=== PATIENT | female | born 1935 | race Caucasian/White ===

== ENCOUNTER → 2016-10-03 | Outpatient (REF) | payer MEDICARE | LOC: M LAB REF 16:24 | PROVIDERS: ATTEND Physician Assistant | DX: N39.0 Urinary tract infection, site not specified (principal) ==

== ENCOUNTER → 2016-10-28 | Outpatient (REF) | payer MEDICARE | LOC: M LAB REF 15:00 | PROVIDERS: ATTEND Physician Assistant | DX: N39.0 Urinary tract infection, site not specified (principal) ==

== ENCOUNTER → 2016-12-01 | Outpatient (REF) | payer MEDICARE | LOC: M LABNEURO 10:40 | PROVIDERS: ATTEND Psychiatry & Neurology Neurology | DX: M54.9 Dorsalgia, unspecified (principal) ==

== ENCOUNTER → 2017-02-02 | Outpatient (REF) | payer MEDICARE ==
[2017-02-02 15:29] LABS: IMMUNOGLOBULIN A 61.3 MG/DL (70-400); IMMUNOGLOBULIN G 2080 MG/DL (681-1648); IMMUNOGLOBULIN M 69.8 MG/DL (40-230); TOTAL PROTEIN 8.3 GM/DL (6.4-8.2)
[2017-02-03 14:17] LABS: FREE KAPPA LIGHT CHAINS SERUM 27.3 mg/L (3.3-19.4); FREE LAMBDA LIGHT CHAINS SERUM 13.1 mg/L (5.7-26.3); KAPPA/LAMBDA RATIO SERUM 2.08 (0.26-1.65)
[2017-02-06 11:35] LABS: ALBUMIN 4.29 GM/DL (3.29-5.55); ALBUMIN % 51.7 % (55.8-66.1); GAMMA GLOBULIN % 27.3 % (11.1-18.8)
== END ==
LOC: M LAB REF 13:08
PROVIDERS: ATTEND Internal Medicine Medical Oncology
DX: D47.2 Monoclonal gammopathy (principal)

== ENCOUNTER → 2017-06-01 | Outpatient (CLI) | payer MEDICARE ==
--- NOTE | 2017-06-01 11:25 | REPMRS ---
Patient History The patient states she had a clinical breast exam in May 2017. Patient is postmenopausal. No known family history of cancer. Benign stereotactic core biopsy of the right breast. Digital Mammo Screening Bilat: June 01, 2017 - Exam #: [id number] Bilateral CC and MLO view(s) were taken. Technologist: Kajal Varela, Technologist Prior study comparison: May 30, 2016, bilateral digital mammo screening bilat performed at [facility]. May 26, 2015, bilateral digital mammo screening bilat performed at [facility]. FINDINGS: There are scattered fibroglandular densities. There has been no change in the appearance of the mammogram from the prior studies. There is a mild amount of residual fibroglandular tissue which is fairly symmetric. There is no interval development of dominant mass, architectural distortion, or clustered microcalcification suggestive of malignancy. ASSESSMENT: BI-RADS/ACR category 1 mammogram. Negative. Recommendation Routine screening mammogram in 1 year (for women over age 40). This mammogram was interpreted with the aid of an FDA-approved computer-aided dectection system. Electronically Signed By: Jay Toledo MD 06/01/17 0320
== END ==
LOC: M RAD 10:55
PROVIDERS: ATTEND Advanced Practice Midwife
DX: Z12.31 Encounter for screening mammogram for malignant neoplasm of breast (principal)

== ENCOUNTER → 2017-08-15 | Outpatient (REF) | payer MEDICARE ==
[2017-08-15 13:08] LABS: IMMUNOGLOBULIN A 55.6 MG/DL (70-400); IMMUNOGLOBULIN G 2030 MG/DL (681-1648); IMMUNOGLOBULIN M 56.4 MG/DL (40-230); TOTAL PROTEIN 7.5 GM/DL (6.4-8.2)
[2017-08-17 00:06] LABS: FREE KAPPA LIGHT CHAINS SERUM 23.3 mg/L (3.3-19.4); FREE LAMBDA LIGHT CHAINS SERUM 11.9 mg/L (5.7-26.3); KAPPA/LAMBDA RATIO SERUM 1.96 (0.26-1.65)
[2017-08-17 11:28] LABS: ALBUMIN 3.97 GM/DL (3.29-5.55); ALBUMIN % 52.9 % (55.8-66.1); ALPHA-1-GLOBULIN % 3.3 % (2.9-4.9); ALPHA-1-GLOBULINS 0.25 GM/DL (0.17-0.41); ALPHA-2-GLOBULINS 0.63 GM/DL (0.42-0.99); ALPHA-2-GLOBULINS % 8.4 % (7.1-11.8); BETA-1-GLOBULINS 0.38 GM/DL (0.28-0.60); BETA-1-GLOBULINS % 5.1 % (4.7-7.2); BETA-2-GLOBULINS 0.25 GM/DL (0.19-0.55); BETA-2-GLOBULINS % 3.3 % (3.2-6.5); GAMMA GLOBULINS 2.03 GM/DL (0.65-1.58)
== END ==
LOC: M LAB REF 11:53
DX: D47.2 Monoclonal gammopathy (principal)
CPT/HCPCS: 84165

== ENCOUNTER → 2017-09-06 | Outpatient (REF) | payer MEDICARE | LOC: M LAB REF 18:43 | DX: D47.2 Monoclonal gammopathy (principal) | CPT/HCPCS: 88300 ==

== ENCOUNTER → 2018-06-06 | Outpatient (CLI) | payer MEDICARE | LOC: M RAD 10:29 | DX: Z12.31 Encounter for screening mammogram for malignant neoplasm of breast (principal) | CPT/HCPCS: 77067 ==

== ENCOUNTER → 2018-07-09 | Outpatient (REF) | payer MEDICARE ==
[2018-07-09 20:16] LABS: BASO % 0.5 % (0.0-1.0); EOS # 0.1 10^3/uL (0.0-0.50); EOS % 1.4 % (0.0-3.0); HEMATOCRIT 41.2 % (36.0-47.0); HEMOGLOBIN 13.4 g/dl (12.0-15.5); IMMATURE GRANULOCYTE % 0.2 % (0-3.0); LYMPH # 3.4 10^3/uL (1.5-4.5); LYMPH % 52.3 % (24.0-44.0); MEAN CORPUSCULAR HEMOGLOBIN 31.1 pg (27.0-33.0); MEAN CORPUSCULAR HGB CONC 32.5 g/dl (32.0-36.5); MEAN CORPUSCULAR VOLUME 95.6 fl (80.0-96.0); MONO # 0.5 10^3/uL (0.0-0.8); MONO % 7.6 % (0.0-5.0); NEUTROPHILS # 2.4 10^3/uL (1.8-7.7); PLATELET COUNT, AUTOMATED 241 10^3/uL (150-450); RED BLOOD COUNT 4.31 10^6/uL (4.00-5.40); RED CELL DISTRIBUTION WIDTH 12.8 % (11.5-14.5); WHITE BLOOD COUNT 6.4 10^3/uL (4.0-10.0)
[2018-07-09 20:46] LABS: FERRITIN 73 NG/ML (8-252); IRON (FE) 67 UG/DL (50-170); PERCENT SATURATION 20.8 % (13.2-45.0); THYROID STIMULATING HORMONE 0.537 uIU/ML (0.358-3.740); TOTAL IRON BINDING CAPACITY 322 UG/DL (250-450)
[2018-07-09 20:49] LABS: FOLATE > 24.0 NG/ML; TOTAL 25(OH) VITAMIN D 52.2 NG/ML (30.0-100.0); VITAMIN B12 LEVEL 906 PG/ML
== END ==
LOC: M SFHCLERA 19:27
DX: R51 Headache (principal); D49.2 Neoplasm of unspecified behavior of bone, soft tissue, and skin; L65.0 Telogen effluvium
CPT/HCPCS: 82746

== ENCOUNTER → 2018-07-09 | Outpatient (REF) | payer MEDICARE | LOC: M SFHCLERA 11:41 | DX: L82.1 Other seborrheic keratosis (principal) | CPT/HCPCS: 88305 ==

== ENCOUNTER → 2019-05-20 | Outpatient (REF) | payer MEDICARE ==
[~2019-05-20] MED LIST: AMLO2.5T3 PO; CENTCHW3 PO; DOXE25CA PO; ESTR0.1C5 PO; FISH1CAP24 PO; LOVA20TA2 PO; TIMO0.5S39 OP; VITA1CHW13 PO
== END ==
LOC: M SFHCSACK 15:45
PROVIDERS: ATTEND Physician Assistant
DX: N39.0 Urinary tract infection, site not specified (principal)
CPT/HCPCS: 81002; 87088; 87186; G0463

== ENCOUNTER 2019-06-10 09:26 | Emergency (ER) | payer MEDICARE ==
[~2019-06-10] VITALS: Ht 167.6 cm; Wt 59.5 kg
--- NOTE | 2019-06-10 10:00 | REP ---
Clinical: Acute chest pain. Comparison: 11/22/2018. Findings: Mediastinum and cardiac silhouette are within normal limits and stable. Chronic linear changes at the bilateral bases (left greater than right) remains stable. No acute consolidation, obvious effusion, or pneumothorax. Skeletal structures intact. Impression: Chronic stable bibasilar changes. No acute process. Electronically Signed by Marcos Swanson MD 06/10/2019 09:51 A
[2019-06-10] MEDS ORDERED: LATANOPROST PO (10:03)
[2019-06-10] MEDS ORDERED: DULO1CAP5 PO (10:03)
[2019-06-10 10:08] LABS: BASO % 0.5 % (0.0-1.0); EOS # 0.1 10^3/uL (0.0-0.5); EOS % 1.6 % (0.0-3.0); HEMATOCRIT 40.8 % (36.0-47.0); HEMOGLOBIN 13.1 g/dl (12.0-15.5); LYMPH # 2.3 10^3/uL (1.5-5.0); MEAN CORPUSCULAR HEMOGLOBIN 30.4 pg (27.0-33.0); MEAN CORPUSCULAR HGB CONC 32.1 g/dl (32.0-36.5); MEAN CORPUSCULAR VOLUME 94.7 fl (80.0-96.0); MONO # 0.4 10^3/uL (0.0-0.8); MONO % 6.4 % (0.0-5.0); NEUTROPHILS % 52.3 % (36.0-66.0); PLATELET COUNT, AUTOMATED 243 10^3/uL (150-450); RED BLOOD COUNT 4.31 10^6/uL (4.00-5.40); WHITE BLOOD COUNT 5.8 10^3/uL (4.0-10.0)
[2019-06-10] MEDS ORDERED: ASPIRIN 81 MG CHEW TABLET PO ONE (10:15)
[2019-06-10 10:41] LABS: ALBUMIN 3.3 GM/DL (3.2-5.2); ALT/SGPT 21 U/L (12-78); BILIRUBIN,DIRECT < 0.1 MG/DL (0.0-0.2); BILIRUBIN,TOTAL 0.4 MG/DL (0.2-1.0); BLOOD UREA NITROGEN 24 MG/DL (7-18); CALCIUM LEVEL 9.7 MG/DL (8.8-10.2); CARBON DIOXIDE LEVEL 31 MEQ/L (21-32); CHLORIDE LEVEL 104 MEQ/L (98-107); CK-MB VALUE MASS < 1.0 NG/ML (<3.6); CPK CREATINE PHOSPHOKINASE 51 U/L (26-192); CREATININE FOR GFR 0.82 MG/DL (0.55-1.30); GLOMERULAR FILTRATION RATE > 60.0 (>32); GLUCOSE, FASTING 78 MG/DL (70-100); LIPASE 358 U/L (73-393); MB/CK RELATIVE INDEX 1.96 (< OR =4); POTASSIUM SERUM 4.1 MEQ/L (3.5-5.1); SODIUM LEVEL 139 MEQ/L (136-145); TOTAL PROTEIN 8.7 GM/DL (6.4-8.2); TROPONIN I < 0.02 NG/ML (< 0.10)
[2019-06-10] MEDS ORDERED: ISOVUE-370 76% 100ML VIAL (Q9967) As Ordered ONE (11:06)
--- NOTE | 2019-06-10 11:40 | REP ---
Clinical: Acute left-sided chest pain . Technique: Axial contrast enhanced images from the thoracic inlet to the upper abdomen using 100 ml Isovue 370 intravenous contrast material with multiplanar re-formations. Findings: Satisfactory enhancement of the pulmonary vasculature is achieved and no filling defects are identified to suggest pulmonary embolus. Further evaluation of the mediastinum demonstrates relatively normal thoracic aorta without aneurysm or dissection. The heart and pericardium are grossly normal. The bilateral lung gilliam demonstrate chronic age-related interstitial changes along with minimal basilar atelectasis (left greater than right). No consolidation. No effusion. No pneumothorax. Tracheobronchial tree is patent. No adenopathy. Impression: No evidence for pulmonary embolus. Chronic changes with very minimal basilar atelectasis (left greater than right). Electronically Signed by Marcos Swanson MD 06/10/2019 11:32 A
[2019-06-10 11:45] VITALS: BP 137/97
--- NOTE | 2019-06-10 20:26 | ECGEPIP ---
[facility] - ED Test Date: 2019-06-10 Pat Name: SANDY CONTRERAS Department: Room: - Gender: Female [employer]: tb : 1935 Requested By: Ambrocio Hale Order Number: [id number] Reading MD: Ambrocio Hale Measurements Intervals [place] Rate: 69 P: 84 MT: 149 QRS: 42 QRSD: 97 T: 48 QT: 409 QTc: 440 Interpretive Statements SINUS RHYTHM INCOMPLETE RIGHT BUNDLE BRANCH BLOCK NONSPECIFIC ST T WAVE CHANGES NO PRIOR ECG FOR COMPARISON Electronically Signed on 06-10-2019 20:26:13 EDT by Ambrocio Hale
== END 2019-06-10 12:08 | disposition home or self-care (01) ==
LOC: M ED 09:26
DX: S29.011A Strain of muscle and tendon of front wall of thorax, initial encounter (principal); X58.XXXA Exposure to other specified factors, initial encounter; Y92.89 Other specified places as the place of occurrence of the external cause; I45.19 Other right bundle-branch block; E78.5 Hyperlipidemia, unspecified; Z88.0 Allergy status to penicillin; Z79.899 Other long term (current) drug therapy
CPT/HCPCS: 36415; 71045; 71275; 80048; 80076; 82550; 82553; 83690; 84484; 85025; 93005; 93041; 94760; 99285; Q9967

== ENCOUNTER → 2019-08-26 | Outpatient (CLI) | payer MEDICARE ==
[~2019-08-26] MED LIST changes: +DULO1CAP5 PO; +LATANOPROST PO; +MELO7.5T35 PO
[2019-08-26 15:17] LABS: HEMATOCRIT 39.7 % (36.0-47.0); HEMOGLOBIN 12.8 g/dl (12.0-15.5); MEAN CORPUSCULAR HGB CONC 32.2 g/dl (32.0-36.5); MEAN CORPUSCULAR VOLUME 96.1 fl (80.0-96.0); PLATELET COUNT, AUTOMATED 231 10^3/uL (150-450); RED BLOOD COUNT 4.13 10^6/uL (4.00-5.40); WHITE BLOOD COUNT 5.7 10^3/uL (4.0-10.0)
[2019-08-26 15:32] LABS: INR 0.98; PROTHROMBIN TIME 12.7 SECONDS (11.8-14.0)
[2019-08-26 15:48] LABS: ERYTHROCYTE SEDIMENTATION RATE 20 mm/hr (0-30)
[2019-08-26 15:49] LABS: ALBUMIN 3.4 GM/DL (3.2-5.2); ALT/SGPT 23 U/L (12-78); BILIRUBIN,TOTAL 0.3 MG/DL (0.2-1.0); BLOOD UREA NITROGEN 21 MG/DL (7-18); CALCIUM LEVEL 9.3 MG/DL (8.8-10.2); CARBON DIOXIDE LEVEL 31 MEQ/L (21-32); CHLORIDE LEVEL 101 MEQ/L (98-107); CREATININE FOR GFR 0.71 MG/DL (0.55-1.30); GLOMERULAR FILTRATION RATE > 60.0 (>32); GLUCOSE, FASTING 100 MG/DL (70-100); POTASSIUM SERUM 3.8 MEQ/L (3.5-5.1); SODIUM LEVEL 138 MEQ/L (136-145); TOTAL PROTEIN 7.9 GM/DL (6.4-8.2)
== END ==
LOC: M LAB 14:33
PROVIDERS: ATTEND Orthopaedic Surgery
DX: Z01.818 Encounter for other preprocedural examination (principal); M16.12 Unilateral primary osteoarthritis, left hip

== ENCOUNTER 2019-09-02 05:48 | Inpatient (IN) | payer MEDICARE ==
[~2019-09-02] VITALS: Ht 165.1 cm; Wt 56.2 kg
[2019-09-02] VITALS (7 sets, daily range): BP systolic 121–156; BP diastolic 60–78
[~2019-09-02 05:48] MED LIST changes: +ACET25TA12 PO; +EQL50TAB2 PO; +HAIR1CHW PO; +MSM1000C PO; +OMEG350C PO; +XALA0.007 OU
[2019-09-02] MEDS ORDERED: LR 1,000 ML IV ONE (06:00)
[2019-09-02] MEDS ORDERED: LIDOCAINE 2% INJ 100 MG/5 ML SDV (FOR ANES.) As Ordered ONE (06:07)
[2019-09-02] MEDS ORDERED: propofoL 200 MG/20 ML VIAL As Ordered ONE (06:07)
[2019-09-02] MEDS ORDERED: ONDANSETRON 4MG/2ML VIAL (J2405) As Ordered ONE (06:09)
[2019-09-02] MEDS ORDERED: BUPIVACAINE/DEXTROSE 0.75% 2 ML AMP As Ordered ONE (06:37)
[2019-09-02] MEDS ORDERED: ACETAMINOPHEN TAB 650MG DOSE (2X325MG) PO ONE (06:45)
[2019-09-02] MEDS ORDERED: CLINDAMYCIN INJ 900MG/6ML VIAL As Ordered ONE (07:09)
[2019-09-02] MEDS ORDERED: MIDAZOLAM INJ 2 MG/2 ML VIAL (J2250) As Ordered ONE (07:09)
[2019-09-02] MEDS ORDERED: BUPIVACAINE HCL 0.5% 30 ML VIAL As Ordered ONE (07:09)
[2019-09-02] MEDS ORDERED: ceFAZolin 1GM INJ (J0690 PER 500MG) As Ordered ONE (07:19)
[2019-09-02] MEDS ORDERED: ceFAZolin 2 GM/D5W 50 ML IV BAG (J0690 PER 500MG) As Ordered ONE (07:22)
--- NOTE | 2019-09-02 07:26 | HPE ---
DATE OF ADMISSION: 09/02/2019 ATTENDING PHYSICIAN: Dr. Guerra CHIEF COMPLAINT: Left hip pain and stiffness. HISTORY: The patient is a pleasant 84-year-old female with progressively worsening left hip pain and stiffness. She has failed to improve with conservative measures. She continues to have symptoms with weightbearing activities and activities of daily living. She has consented for an elective left total hip arthroplasty with Dr. Guerra for her continued symptoms. Medical optimization pending with Dr. Schreiber. CURRENT MEDICATIONS: Amlodipine 2.5 mg daily, timolol 0.5% eye drops, latanoprost 0.00 5% eye drops, Tylenol 650 mg as needed, a daily multivitamin, fish oil 1000 mg daily, lovastatin 20 mg daily, meloxicam 7.5 mg daily, B complex vitamins. ALLERGIES: There are NO KNOWN DRUG ALLERGIES. CHRONIC MEDICAL CONDITIONS: Hyperlipidemia. PAST SURGICAL HISTORY: Cataract removal and hysterectomy. SOCIAL HISTORY: The patient does not use tobacco and rarely uses alcohol. She does live at home alone. REVIEW OF SYSTEMS: The patient denies fevers, chills, nausea or vomiting. She denies chest pain, shortness of breath, lightheadedness, dizziness or headaches. She denies any abdominal pain. She denies any recent upper respiratory or urinary tract infection symptoms. She continues to have left hip pain with weightbearing activities and activities of daily living. PHYSICAL EXAMINATION: General: Well-nourished, well-developed female in no apparent distress. She is alert, oriented and cooperative. Mood and affect are appropriate. Vital Signs: Blood pressure 110/82, heart rate 58, respirations 18, height 5 feet 5-1/2 inches, weight 119 pounds, temperature 97.6. Neck: Supple without lymphadenopathy. Heart: Regular rate and rhythm. Lungs: Clear to auscultation bilaterally. Abdomen: Bowel sounds are present. Abdomen is soft and nontender to palpation. Musculoskeletal: Left hip exhibits no gross abnormalities. There is tenderness to palpation along the groin. The patient has decreased flexion internal and external rotation at the hip. Strength of the left lower extremity is 5/5. Calf is soft, nontender to palpation with no palpable cords noted. She is neurovascularly intact distally. CHEST X-RAY: Chronic stable right basilar changes. No acute process. LEFT HIP X-RAY: Notable for end-stage degenerative changes. ELECTROCARDIOGRAM: Sinus rhythm with an incomplete right bundle branch block with nonspecific ST-T wave changes. LABORATORY DATA: Prothrombin time 12.7, INR 0.98. Complete blood count ESR 20, WBC 5.7, RBC 4.13, hemoglobin 12.8, hematocrit 39.7, platelets 231. Comprehensive metabolic profile: fasting glucose 100, BUN elevated at 21, creatinine 0.71, GFR greater than 60, sodium 138, potassium 3.8, chloride 101, carbon dioxide 31, anion gap decreased at 6, calcium 9.3, AST 23, ALT 23, alkaline phosphatase 53, total bilirubin 0.3, total protein 7.9, albumin 3.4, albumin-globulin ratio is 0.76. IMPRESSION: Left hip degenerative arthritis with x-rays notable for end-stage degenerative changes. PLAN: The patient has consented for an elective left total hip arthroplasty with Dr. Guerra for her continued symptoms. Medical optimization pending with Dr. Schreiber. Reviewed pre and postoperative instructions to include, but not limited to need to be nothing by mouth (n.p.o.) after midnight, length of stay, when to stop anti-inflammatories and aspirin. We also discussed the importance of following primary rn acute care's recommendations for stopping anticoagulants and how to take daily medications. AALIYAH
[2019-09-02] MEDS ORDERED: ceFAZolin SOD 2 GM in IV 1 EA IV ONE (08:00)
[2019-09-02] MEDS ORDERED: ePHEDrine SULFATE 25 MG/5 ML(5MG/ML) SYRINGE As Ordered ONE (08:14)
[2019-09-02] MEDS ORDERED: ONDANSETRON 4MG/2ML VIAL (J2405) IV PRN ×2 (09:45→10:46)
[2019-09-02] MEDS ORDERED: LR 1,000 ML IV SCH ×2 (09:45→10:46)
[2019-09-02] MEDS ORDERED: METOCLOPRAMIDE INJ 10MG/2ML VIAL (J2765) IV PRN (09:45)
[2019-09-02] MEDS ORDERED: PERCOCET 5MG/325MG TAB PO PRN (09:45)
[2019-09-02] MEDS ORDERED: fentaNYL 100 MCG/2 ML INJECTION (J3010) IV PRN (09:45)
[2019-09-02] MEDS ORDERED: MEPERIDINE INJ 25 MG/ML VIAL (J2175) IV PRN (09:45)
--- NOTE | 2019-09-02 10:04 | REP ---
Left hip: Portable exam two views. History: Postop evaluation. Findings: AP and lateral views of the left hip obtained postoperatively demonstrate lateral skin damian. A left hip arthroplasty is seen with components in good position. Periarticular soft tissue emphysema is noted. There is some diffuse osteopenia. Electronically Signed by Saul Schwarz MD 09/02/2019 10:59 A
--- NOTE | 2019-09-02 10:41 | RO ---
DATE OF OPERATION: 09/02/2019 PREOPERATIVE DIAGNOSIS: Left hip osteoarthritis. POSTOPERATIVE DIAGNOSIS: Left hip osteoarthritis. PROCEDURE: Left total hip arthroplasty using a size 52 cup with a neutral 32 liner and a 1.5 neck with a 32-mm ball and a size 5 Victor standard-offset stem. The prosthesis was made by [employer]. SURGEON: Hira Guerra MD HIDE DROPPER: Ms. Thania Conner ANESTHESIA: Spinal. COMPLICATION: None. ESTIMATED BLOOD LOSS: 200 mL. SPECIMENS: Femoral head. DESCRIPTION OF PROCEDURE: Antibiotics were given intravenously preoperatively, and a successful spinal anesthetic was induced. She was placed in a lateral decubitus position. Jefferson hip positioner was utilized. Down leg well padded, especially the perineal nerve. The left hip area was carefully prepped and draped in the usual sterile fashion. After appropriate time-out, a longitudinal incision was made for a direct anterolateral approach to the hip. Bovie cautery was used to coagulate crossing vessels down to the tensor fascia, which was then divided in line with the skin incision. We split the gluteus medius in the anterior one-third and posterior two-third junction. We carefully dissected the underlying gluteus minimus and anterior hip capsule and eventually dissected along the anterior aspect of the greater trochanter until we dislocated the hip anteriorly. The pyriformis fossa was identified. A starter reamer placed, followed by the canal-finding reamer, then the lateralizing reamer. Then, we reamed up to a size 5. A femoral neck osteotomy was performed using the trial template, and then we broached up to a size 5. We exposed the acetabulum, performed a labral excision 360 degrees, and then began reaming beginning with a #45 reamer advanced up to 51. The trial 52 fit nicely. We used the extramedullary alignment jig to, therefore, install the 52-mm Gription cup. A small anterior osteophyte was debrided. We irrigated before implanting the cup and afterward then placed the liner and made sure it was seated properly. We then trialed with the #5 broach with a 1.5 neck and the 32-mm ball, and the hip was very stable with flexion internal rotation and extension external rotation. There was minimal soft tissue telescoping. Thus, I felt this was the appropriate size. We then removed the trial components, copiously irrigated, placed the real #5 Victor standard-offset stem, dried the trunnion, placed the 32 x 1.5 ball, and then reduced the hip. We then copiously irrigated the hip wound, closed the anterior hip capsule and then the gluteus medius back anatomically with interrupted #1 polydioxanone suture (PDS) sutures. The tensor fascia was closed with interrupted and a running #1 single-arm Stratafix, and then the deep subdermal tissues were closed with interrupted 2-0 PDS sutures. The skin was closed with damian, covered by an Optifoam dry sterile bulky dressing. She was then turned supine and then transferred to the recovery room in stable condition. There were no intraoperative complications. Ms. Thania Conner was critical to the success of this difficult surgery by helping to manipulate the leg in and out of the leg bag anteriorly, helped with appropriate soft tissue retraction, helped to close the wound, helped to prepare the patient, helped to position the patient, amongst many other tasks to allow me to perform the operation smoothly and efficiently and safely.
[2019-09-02] MEDS ORDERED: ACETAMINOPHEN TAB 650MG DOSE (2X325MG) PO PRN (10:46)
[2019-09-02] MEDS ORDERED: MORPHINE 2 MG/ML 1ML VIAL (J2270) IV PRN (10:46)
[2019-09-02] MEDS: MULTIVITAMINS/MINERALS THERAP 1 TAB PO SCH (13:34)
[2019-09-02] MEDS: ceFAZolin SOD 2 GM in IV 1 EA IV SCH ×2 (15:33→23:07)
[2019-09-02] MEDS: PERCOCET 5MG/325MG TAB PO PRN ×2 (15:33→22:25)
--- NOTE | 2019-09-02 19:53 | HPEPDOC ---
General Date of Admission Sep 02, 2019 at 05:48 Date of Service: Sep 02, 2019 Chief Complaint The patient is a 84-year-old female admitted with a reason for visit of Left Hip Oa. Source: Patient History of Present Illness Consultation Report Consultation requested by orthopedics Consultation for the management of medical commorbidities. HPI: 84 year old female with advanced osteoarthritis of her left hip admitted for elective left hip replacement under the orthopedic service. Hospitalist consulted for the management of medical commodities. Patient complains of dull aching pain of her left hip at the surgical site which is appropriate about 4/10 in intensity. Also complained of nausea when she stood up to use the commode but that has resolved now. Home Medications Scheduled Acetaminophen/Diphenhydramine (Acetaminophen Pm Caplet) 1 Each Tablet, 1 TAB PO QHS, (Reported) Ascorbic Acid/Vitamin E/Biotin (Hair Skin Nails-Biotin Gummies) 1 Each Tab.chew, 1 CHW PO DAILY, (Reported) Estradiol (Estradiol) 0.1 Mg/Gm Cre, 0.1 MG PO 2XW, (Reported) Folic Acid/Multivit-Min/Lutein (Centrum Silver Chewable Tablet) 1 Chw Chw, 1 TAB PO DAILY, (Reported) Latanoprost (Xalatan) 0.005% 2.5ML Drops, 1 DROP OU QHS, (Reported) Lovastatin (Lovastatin) 20 Mg Tab, 20 MG PO QPM, (Reported) Meloxicam (Meloxicam) 7.5 Mg Tablet, 7.5 MG PO DAILY, (Reported) Methylsulfonylmethane (Msm) 1,000 Mg Capsule, 1,000 MG PO DAILY, (Reported) [place]-3/Dha/Epa/Fish Oil ([place]-3 EC Softgel) 1 Each Capsule.dr, 1 CAP PO DAILY, (Reported) Timolol Maleate (Timolol Maleate) 0.5 % Marcia, 0.5 % OP DAILY, (Reported) Vitamin B Complex (Vitamin B Complex) 1 Each Tablet, 1 TAB PO DAILY, (Reported) Allergies Coded Allergies: Penicillins (Verified Allergy, Unknown, 08/29/19) Past Medical History Medical History MIXED HYPERLIPIDEMIA MONOCLONAL GAMMOPATHY, 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 GRANDMOTHER HAD DIABETIES, MOTHER HAD COLON CANCERFAMILY HISTORY OF HEART DISEASE AND DM. Social History * Smoker: Denies Alcohol: Denies Drugs: denies Vital Signs Vital Signs Date Time Temp Pulse Resp B/P (MAP) Pulse Ox O2 Delivery O2 Flow Rate FiO2 09/02/19 18:00 97.4 78 18 121/60 (80) 99 Room Air Assessment/Plan 84 year old female with advanced osteoarthritis of her left hip admitted for elective left hip replacement under the orthopedic service. Hospitalist christopher calvin for the management of medical commodities. Left hip total arthroplasty pain control and DVT prophylaxis as per orthopedics. Glaucoma continue home eye drops Hyperlipidemia continue statin Plan / VTE VTE Prophylaxis Ordered?: Yes DELROY SHI MD Sep 02, 2019 19:53
[2019-09-02] MEDS: SIMVASTATIN 20 MG TAB PO SCH (22:24)
[2019-09-02] MEDS: LATANOPROST 0.005% OPHTH SOLN 2.5 ML OU SCH (22:24)
[2019-09-03 02:00] VITALS: BP 107/53
[2019-09-03] MEDS: PERCOCET 5MG/325MG TAB PO PRN ×3 (04:30→18:04)
[2019-09-03] MEDS ORDERED: MOM 30ML SUSPENSION UDC PO SCH (06:00)
[2019-09-03 06:11] LABS: HEMATOCRIT 33.9 % (36.0-47.0); HEMOGLOBIN 10.9 g/dl (12.0-15.5); MEAN CORPUSCULAR HEMOGLOBIN 30.3 pg (27.0-33.0); MEAN CORPUSCULAR HGB CONC 32.2 g/dl (32.0-36.5); MEAN CORPUSCULAR VOLUME 94.2 fl (80.0-96.0); PLATELET COUNT, AUTOMATED 157 10^3/uL (150-450); WHITE BLOOD COUNT 6.3 10^3/uL (4.0-10.0)
[2019-09-03 06:40] VITALS: BP 104/52
[2019-09-03 06:45] LABS: ALBUMIN 2.5 GM/DL (3.2-5.2); ALT/SGPT 13 U/L (12-78); BILIRUBIN,TOTAL 0.8 MG/DL (0.2-1.0); BLOOD UREA NITROGEN 16 MG/DL (7-18); CALCIUM LEVEL 8.3 MG/DL (8.8-10.2); CARBON DIOXIDE LEVEL 26 MEQ/L (21-32); CHLORIDE LEVEL 103 MEQ/L (98-107); GLOMERULAR FILTRATION RATE > 60.0 (>32); GLUCOSE, FASTING 121 MG/DL (70-100); POTASSIUM SERUM 3.5 MEQ/L (3.5-5.1); SODIUM LEVEL 135 MEQ/L (136-145); TOTAL PROTEIN 6.3 GM/DL (6.4-8.2)
[2019-09-03] MEDS ORDERED: XARE10TA PO (06:59)
[2019-09-03] MEDS ORDERED: PERC5TAB12 PO (06:59)
[2019-09-03] MEDS: ceFAZolin SOD 2 GM in IV 1 EA IV SCH ×2 (07:00→07:07)
[2019-09-03] MEDS ORDERED: CEPHALEXIN 500 MG CAP PO ONE (07:45)
[2019-09-03] MEDS: MULTIVITAMINS/MINERALS THERAP 1 TAB PO SCH (08:47)
[2019-09-03] MEDS: MIRALAX *UNIT DOSE* 17GM PACKET PO SCH (08:47)
[2019-09-03 13:11] VITALS: BP 135/63
[2019-09-03] MEDS: TIMOLOL MALEATE 0.5% OPHTH SOLN 5 ML OU SCH (15:23)
[2019-09-03] MEDS: RIVAROXABAN 10 MG TAB (XARELTO) PO SCH (18:01)
[2019-09-03 21:09] VITALS: BP 131/63
[2019-09-03] MEDS: SIMVASTATIN 20 MG TAB PO SCH (22:20)
[2019-09-03] MEDS: LATANOPROST 0.005% OPHTH SOLN 2.5 ML OU SCH (22:21)
[2019-09-04] MEDS: PERCOCET 5MG/325MG TAB PO PRN ×3 (04:04→15:58)
[2019-09-04 05:48] VITALS: BP 103/56
[2019-09-04 07:14] LABS: HEMATOCRIT 31.6 % (36.0-47.0); HEMOGLOBIN 10.1 g/dl (12.0-15.5); MEAN CORPUSCULAR HEMOGLOBIN 30.6 pg (27.0-33.0); MEAN CORPUSCULAR VOLUME 95.8 fl (80.0-96.0); PLATELET COUNT, AUTOMATED 142 10^3/uL (150-450); WHITE BLOOD COUNT 8.1 10^3/uL (4.0-10.0)
[2019-09-04] MEDS ORDERED: XARE10TA PO (07:29)
[2019-09-04 07:49] LABS: ALBUMIN 2.3 GM/DL (3.2-5.2); ALT/SGPT 12 U/L (12-78); BILIRUBIN,TOTAL 0.5 MG/DL (0.2-1.0); BLOOD UREA NITROGEN 16 MG/DL (7-18); CALCIUM LEVEL 8.1 MG/DL (8.8-10.2); CARBON DIOXIDE LEVEL 27 MEQ/L (21-32); CHLORIDE LEVEL 104 MEQ/L (98-107); CREATININE FOR GFR 0.53 MG/DL (0.55-1.30); GLOMERULAR FILTRATION RATE > 60.0 (>32); GLUCOSE, FASTING 112 MG/DL (70-100); POTASSIUM SERUM 3.4 MEQ/L (3.5-5.1); SODIUM LEVEL 136 MEQ/L (136-145); TOTAL PROTEIN 6.4 GM/DL (6.4-8.2)
[2019-09-04] MEDS: MOM 30ML SUSPENSION UDC PO SCH (10:05)
[2019-09-04] MEDS: MIRALAX *UNIT DOSE* 17GM PACKET PO SCH (10:05)
[2019-09-04] MEDS: MULTIVITAMINS/MINERALS THERAP 1 TAB PO SCH (10:06)
[2019-09-04] MEDS: TIMOLOL MALEATE 0.5% OPHTH SOLN 5 ML OU SCH (10:06)
[2019-09-04 14:00] VITALS: BP 106/56
[2019-09-04] MEDS: RIVAROXABAN 10 MG TAB (XARELTO) PO SCH (18:29)
[2019-09-04 20:17] VITALS: BP 115/58
[2019-09-04] MEDS: LATANOPROST 0.005% OPHTH SOLN 2.5 ML OU SCH (22:42)
[2019-09-04] MEDS: SIMVASTATIN 20 MG TAB PO SCH (22:42)
[2019-09-05] MEDS: PERCOCET 5MG/325MG TAB PO PRN ×3 (00:30→21:41)
[2019-09-05 05:00] VITALS: BP 120/60
[2019-09-05] MEDS ORDERED: MAGNESIUM CITRATE 300 ML BTL PO ONE ×2 (06:15→07:30)
[2019-09-05 07:02] LABS: HEMATOCRIT 30.8 % (36.0-47.0); MEAN CORPUSCULAR HGB CONC 32.5 g/dl (32.0-36.5); MEAN CORPUSCULAR VOLUME 95.4 fl (80.0-96.0); PLATELET COUNT, AUTOMATED 158 10^3/uL (150-450); RED BLOOD COUNT 3.23 10^6/uL (4.00-5.40); WHITE BLOOD COUNT 6.4 10^3/uL (4.0-10.0)
[2019-09-05 07:32] LABS: ALBUMIN 2.4 GM/DL (3.2-5.2); ALT/SGPT 13 U/L (12-78); BILIRUBIN,TOTAL 0.7 MG/DL (0.2-1.0); BLOOD UREA NITROGEN 17 MG/DL (7-18); CALCIUM LEVEL 8.2 MG/DL (8.8-10.2); CARBON DIOXIDE LEVEL 31 MEQ/L (21-32); CHLORIDE LEVEL 99 MEQ/L (98-107); CREATININE FOR GFR 0.59 MG/DL (0.55-1.30); GLOMERULAR FILTRATION RATE > 60.0 (>32); GLUCOSE, FASTING 111 MG/DL (70-100); POTASSIUM SERUM 3.1 MEQ/L (3.5-5.1); SODIUM LEVEL 134 MEQ/L (136-145); TOTAL PROTEIN 6.6 GM/DL (6.4-8.2)
[2019-09-05] MEDS ORDERED: MAGNESIUM CITRATE 300 ML BTL PO PRN (08:30)
[2019-09-05] MEDS: MIRALAX *UNIT DOSE* 17GM PACKET PO SCH (09:12)
[2019-09-05] MEDS: MOM 30ML SUSPENSION UDC PO SCH (09:12)
[2019-09-05] MEDS: MULTIVITAMINS/MINERALS THERAP 1 TAB PO SCH (09:12)
[2019-09-05] MEDS: TIMOLOL MALEATE 0.5% OPHTH SOLN 5 ML OU SCH (09:13)
[2019-09-05 14:00] VITALS: BP 119/60
[2019-09-05] MEDS: RIVAROXABAN 10 MG TAB (XARELTO) PO SCH (18:07)
[2019-09-05] MEDS: LATANOPROST 0.005% OPHTH SOLN 2.5 ML OU SCH (20:12)
[2019-09-05] MEDS: SIMVASTATIN 20 MG TAB PO SCH (20:12)
[2019-09-05 20:15] VITALS: BP 135/55
[2019-09-05 21:48] VITALS: BP 128/65
[2019-09-06 05:58] VITALS: BP 132/56
[2019-09-06 06:17] LABS: HEMATOCRIT 30.6 % (36.0-47.0); HEMOGLOBIN 9.8 g/dl (12.0-15.5); MEAN CORPUSCULAR HEMOGLOBIN 30.4 pg (27.0-33.0); PLATELET COUNT, AUTOMATED 156 10^3/uL (150-450); RED BLOOD COUNT 3.22 10^6/uL (4.00-5.40); WHITE BLOOD COUNT 4.9 10^3/uL (4.0-10.0)
[2019-09-06 06:50] LABS: ALBUMIN 2.1 GM/DL (3.2-5.2); ALT/SGPT 14 U/L (12-78); BILIRUBIN,TOTAL 0.7 MG/DL (0.2-1.0); BLOOD UREA NITROGEN 20 MG/DL (7-18); CALCIUM LEVEL 8.2 MG/DL (8.8-10.2); CARBON DIOXIDE LEVEL 31 MEQ/L (21-32); CHLORIDE LEVEL 103 MEQ/L (98-107); CREATININE FOR GFR 0.54 MG/DL (0.55-1.30); GLOMERULAR FILTRATION RATE > 60.0 (>32); GLUCOSE, FASTING 93 MG/DL (70-100); POTASSIUM SERUM 2.9 MEQ/L (3.5-5.1); SODIUM LEVEL 139 MEQ/L (136-145); TOTAL PROTEIN 6.3 GM/DL (6.4-8.2)
--- NOTE | 2019-09-06 08:14 | IPNPDOC ---
Subjective Date Seen The patient was seen on 09/06/19. Subjective Chief Complaint/HPI called for low potassium of 2.9 this am - Patient has not been on our rounding list Patient of Catia Burt in [facility] who underwent L ANDREAS 09/02. Discharged 09/03, but apparently unable to go to [place] due to lack of BM Bowel care given and developed loose stool last 24 hours which is resolving No complaints otherwise - feels well Constitutional: Denies: Chills, Fever Pulmonary: Denies: Dyspnea, Cough Cardiovascular: Denies: Chest Pain, Palpitations Gastrointestinal: Reports: Diarrhea; Denies: Nausea, Vomiting, Abdominal Pain Objective Physical Examination General Exam: Positive: Alert, No Acute Distress Chest Exam: Positive: Clear to auscultation; Negative: Rales, Rhonchi, Wheezing Heart Exam: Positive: Rate Normal, Regular Rhythm Abdomen Exam: Positive: Normal bowel sounds, Soft; Negative: Tenderness Extremity Exam: Negative: Edema Assessment /Plan Problems (1) Hypokalemia Problem Text: potassium level was a little low over the last 2 days but likely worsened due to diarrhea after getting her bowel care I will replace with oral potassium and check mag level Plan/VTE VTE Prophylaxis Ordered?: Yes (xarelto) VS, I&O, 24H, Fishbone Vital Signs/I&O Vital Signs Date Time Temp Pulse Resp B/P (MAP) Pulse Ox O2 Delivery O2 Flow Rate FiO2 09/06/19 05:58 97.3 67 20 132/56 (81) 99 Room Air I&O- Last 24 Hours up to 6 AM 09/06/19 06:00 Intake Total 800 ml Output Total 350 ml Balance 450 ml Laboratory Data 24H LABS Laboratory Tests 2 09/06/19 05:37: Nucleated Red Blood Cells % (auto) 0.0, Anion Gap 5L, Glomerular Filtration Rate > 60.0, Calcium Level 8.2L, Total Bilirubin 0.7, Aspartate Amino Transf (AST/SGOT) 16, Alanine Aminotransferase (ALT/SGPT) 14, Alkaline Phosphatase 39L, Total Protein 6.3L, Albumin 2.1L, Albumin/Globulin Ratio 0.50L CBC/BMP Laboratory Tests 09/06/19 05:37 JOE RAMON PA-C Sep 06, 2019 08:15
[2019-09-06] MEDS ORDERED: POTASSIUM CHLORIDE 10 MEQ SR TABLET PO ONE (08:15)
[2019-09-06] MEDS: MOM 30ML SUSPENSION UDC PO SCH (08:57)
[2019-09-06] MEDS: MIRALAX *UNIT DOSE* 17GM PACKET PO SCH (08:57)
[2019-09-06] MEDS: TIMOLOL MALEATE 0.5% OPHTH SOLN 5 ML OU SCH (08:57)
[2019-09-06] MEDS: MULTIVITAMINS/MINERALS THERAP 1 TAB PO SCH (08:57)
[2019-09-06 09:25] LABS: MAGNESIUM LEVEL 2.6 MG/DL (1.8-2.4)
== END 2019-09-06 11:00 | DRG 470 ==
LOC: M OR 05:48 → M MS5PR 11:05
PROVIDERS: ADMIT Orthopaedic Surgery; ATTEND Orthopaedic Surgery
PROC: 0SRB02A Replacement of Left Hip Joint with Metal on Polyethylene Synthetic Substitute, Uncemented, Open Approach (ICD-10-PCS; principal; 2019-09-02 07:30)
DX: M16.12 Unilateral primary osteoarthritis, left hip (principal); Z79.899 Other long term (current) drug therapy; E78.2 Mixed hyperlipidemia; I45.10 Unspecified right bundle-branch block; I73.00 Raynaud's syndrome without gangrene; H40.9 Unspecified glaucoma; R25.0 Abnormal head movements; E87.6 Hypokalemia

== ENCOUNTER → 2019-09-07 | Outpatient (REF) ==
[~2019-09-07] MED LIST changes: +PERC5TAB12 PO; +XARE10TA PO
== END ==
PROVIDERS: ATTEND Internal Medicine
DX: E87.6 Hypokalemia (principal)

== ENCOUNTER → 2019-09-10 | Outpatient (REF) ==
[2019-09-10 10:13] LABS: HEMATOCRIT 33.8 % (36.0-47.0); HEMOGLOBIN 10.5 g/dl (12.0-15.5); MEAN CORPUSCULAR HEMOGLOBIN 30.3 pg (27.0-33.0); MEAN CORPUSCULAR HGB CONC 31.1 g/dl (32.0-36.5); MEAN CORPUSCULAR VOLUME 97.7 fl (80.0-96.0); PLATELET COUNT, AUTOMATED 295 10^3/uL (150-450); RED BLOOD COUNT 3.46 10^6/uL (4.00-5.40); WHITE BLOOD COUNT 5.7 10^3/uL (4.0-10.0)
[2019-09-10 10:45] LABS: BLOOD UREA NITROGEN 22 MG/DL (7-18); CARBON DIOXIDE LEVEL 32 MEQ/L (21-32); CHLORIDE LEVEL 102 MEQ/L (98-107); CREATININE FOR GFR 0.68 MG/DL (0.55-1.30); GLOMERULAR FILTRATION RATE > 60.0 (>32); GLUCOSE, FASTING 147 MG/DL (70-100); POTASSIUM SERUM 3.7 MEQ/L (3.5-5.1); SODIUM LEVEL 138 MEQ/L (136-145)
== END ==
PROVIDERS: ATTEND Internal Medicine
DX: E87.6 Hypokalemia (principal)

== ENCOUNTER → 2019-09-16 | Outpatient (CLI) | payer MEDICARE ==
--- NOTE | 2019-09-16 14:44 | REP ---
Left lower extremity deep vein duplex ultrasound: The deep veins demonstrate normal compression, normal Doppler color flow and normal Doppler waveforms with respiration and augmentation from the popliteal vein to the common femoral vein. Impression: There is no lower extremity deep vein thrombus. Electronically Signed by Jay Fitzgerald MD 09/16/2019 02:36 P
== END ==
LOC: M RAD 13:50
PROVIDERS: ATTEND Physician Assistant Medical
DX: Z96.642 Presence of left artificial hip joint (principal); Z86.718 Personal history of other venous thrombosis and embolism

== ENCOUNTER → 2019-09-17 | Outpatient (REF) | PROVIDERS: ATTEND Internal Medicine | DX: E87.6 Hypokalemia (principal) ==

== ENCOUNTER → 2019-09-25 | Outpatient (REF) | payer MEDICARE ==
[2019-09-25 17:58] LABS: BLOOD UREA NITROGEN 23 MG/DL (7-18); CALCIUM LEVEL 9.6 MG/DL (8.8-10.2); CARBON DIOXIDE LEVEL 31 MEQ/L (21-32); CHLORIDE LEVEL 103 MEQ/L (98-107); CREATININE FOR GFR 0.64 MG/DL (0.55-1.30); GLOMERULAR FILTRATION RATE > 60.0 (>32); GLUCOSE, FASTING 78 MG/DL (70-100); POTASSIUM SERUM 4.9 MEQ/L (3.5-5.1); SODIUM LEVEL 140 MEQ/L (136-145)
== END ==
LOC: M SFHCADAM 14:35
PROVIDERS: ATTEND Family Medicine
DX: E87.6 Hypokalemia (principal)
CPT/HCPCS: 80048; 99495; G0463

== ENCOUNTER → 2019-10-07 | Outpatient (REF) | payer MEDICARE ==
[2019-10-07 11:50] LABS: BASO % 0.8 % (0.0-1.0); EOS # 0.1 10^3/uL (0.0-0.5); EOS % 1.6 % (0.0-3.0); HEMATOCRIT 36.1 % (36.0-47.0); HEMOGLOBIN 11.6 g/dl (12.0-15.5); LYMPH # 2.1 10^3/uL (1.5-5.0); MEAN CORPUSCULAR HEMOGLOBIN 31.2 pg (27.0-33.0); MEAN CORPUSCULAR HGB CONC 32.1 g/dl (32.0-36.5); MONO # 0.3 10^3/uL (0.0-0.8); MONO % 6.2 % (0.0-5.0); NEUTROPHILS # 2.5 10^3/uL (1.5-8.5); NEUTROPHILS % 49.2 % (36.0-66.0); PLATELET COUNT, AUTOMATED 245 10^3/uL (150-450); RED BLOOD COUNT 3.72 10^6/uL (4.00-5.40)
[2019-10-07 12:14] LABS: ALBUMIN 3.4 GM/DL (3.2-5.2); ALT/SGPT 16 U/L (12-78); BILIRUBIN,TOTAL 0.4 MG/DL (0.2-1.0); BLOOD UREA NITROGEN 22 MG/DL (7-18); CALCIUM LEVEL 9.3 MG/DL (8.8-10.2); CARBON DIOXIDE LEVEL 32 MEQ/L (21-32); CHLORIDE LEVEL 104 MEQ/L (98-107); CHOLESTEROL LEVEL 198 MG/DL (<200); CHOLESTEROL RISK RATIO 3.093 (<5); CREATININE FOR GFR 0.63 MG/DL (0.55-1.30); FREE T4 1.15 NG/DL (0.76-1.46); GLOMERULAR FILTRATION RATE > 60.0 (>32); GLUCOSE, FASTING 88 MG/DL (70-100); HDL CHOLESTEROL 64 MG/DL (>40); LDL CHOLESTEROL 98 MG/DL (<100); NON-HDL-C 134 MG/DL; POTASSIUM SERUM 4.8 MEQ/L (3.5-5.1); SODIUM LEVEL 140 MEQ/L (136-145); THYROID STIMULATING HORMONE 0.179 uIU/ML (0.358-3.740); TOTAL 25(OH) VITAMIN D 44.5 NG/ML (30.0-100.0); TOTAL PROTEIN 7.8 GM/DL (6.4-8.2); TRIGLYCERIDES LEVEL 179 MG/DL (<150)
== END ==
LOC: M LAB REF 11:21
PROVIDERS: ATTEND Physician Assistant
DX: Z13.21 Encounter for screening for nutritional disorder (principal); C90.00 Multiple myeloma not having achieved remission; E78.2 Mixed hyperlipidemia; E05.90 Thyrotoxicosis, unspecified without thyrotoxic crisis or storm; Z79.899 Other long term (current) drug therapy

== ENCOUNTER → 2019-11-12 | Outpatient (REF) | payer MEDICARE ==
[2019-11-12 15:57] LABS: FREE T4 1.31 NG/DL (0.76-1.46); THYROID STIMULATING HORMONE 0.385 uIU/ML (0.358-3.740)
== END ==
LOC: M LABDRAW1 14:24
PROVIDERS: ATTEND Internal Medicine Endocrinology, Diabetes & Metabolism
DX: R94.6 Abnormal results of thyroid function studies (principal)

== ENCOUNTER → 2020-01-03 | Outpatient (CLI) | payer MEDICARE ==
[2020-01-03 16:40] LABS: BLOOD UREA NITROGEN 28 MG/DL (7-18); GLOMERULAR FILTRATION RATE > 60.0 (>32)
== END ==
LOC: M LAB 15:51
PROVIDERS: ATTEND Orthopaedic Surgery
DX: Z01.812 Encounter for preprocedural laboratory examination (principal)

== ENCOUNTER → 2020-02-20 | Outpatient (CLI) | payer MEDICARE ==
--- NOTE | 2020-02-21 01:25 | REP ---
REASON FOR EXAM: Pain. Assess for metastatic disease. Patient has a history of MGUS. The latest prior plain film examination of the spine for review is 05/26/2015, and that was obtained as part of an osseous survey. That examination shows significant chronic spinal degenerative changes, particularly in the lumbar region. After the intravenous administration of 21.7 mCi of technetium-99m MDP, a total body bone scan was obtained. Linear-type uptake is seen in the lumbar spine at the levels of L2 and L4. There is a photopenic defect in the left hip consistent with hip arthroplasty. There is no evidence of an abnormal focal area of increased or decreased activity in the imaged axial or appendicular skeleton. A mild degenerative-type uptake pattern is seen in the shoulders, sternoclavicular joints, hands, wrists, elbows, hips, knees, and ankles. A degenerative-type uptake pattern is also seen in the region of the sacroiliac joints bilaterally. IMPRESSION: Degenerative changes, as described above, with a degenerative-type uptake pattern seen in the lumbar spine; however, I recommend correlation with plain films since the latest plain film evaluation I have for review is 05/26/2015. There is no compelling scintigraphic evidence for metastatic disease. Electronically Signed by Seb Morton DO 02/21/2020 08:56 A
== END ==
LOC: M RAD 09:33
PROVIDERS: ATTEND Physician Assistant
DX: M47.817 Spondylosis without myelopathy or radiculopathy, lumbosacral region (principal)
CPT/HCPCS: 78306; A9503

== ENCOUNTER → 2020-02-29 | Outpatient (CLI) | payer MEDICARE ==
[2020-02-29 08:59] LABS: PLATELET COUNT, AUTOMATED 227 10^3/uL (150-450)
[2020-02-29 09:26] LABS: PROTHROMBIN TIME 12.9 SECONDS (11.8-14.0)
[2020-02-29 09:27] LABS: PARTIAL THROMBOPLASTIN TIME 35.2 SECONDS (25.0-38.4)
== END ==
LOC: M LAB 08:32
PROVIDERS: ATTEND Physician Assistant
DX: M47.817 Spondylosis without myelopathy or radiculopathy, lumbosacral region (principal)

== ENCOUNTER 2020-03-20 07:25 | Day surgery (SDC) | payer MEDICARE ==
[~2020-03-20 07:25] MED LIST changes: +LIDOCAINE 2% 100MG/5ML SDV (FOR ANES.) As Ordered ONE; +propofoL 200 MG/20 ML VIAL As Ordered ONE
--- NOTE | 2020-04-22 11:28 | ROOR ---
Patient Name: Merced Saba Procedure Date: 03/20/2020 7:31 AM Date of : 1935 Age: 84 Room: [facility] Gender: Female Note Status: Finalized Procedure: Colonoscopy Indications: Clinically significant diarrhea of unexplained origin Providers: Edward TRIPLETT MD Referring MD: Zachary Garcia MD, Fernanda MACEDO DO Requestchristi Provider: Medicines: Monitored Anesthesia Care Complications: No immediate complications. Procedure: Pre-Anesthesia Assessment: - The heart rate, respiratory rate, oxygen saturations, blood pressure, adequacy of pulmonary ventilation, and response to care were monitored throughout the procedure. The Colonoscope was introduced through the anus and advanced to the cecum, identified by appendiceal orifice and ileocecal valve. The colonoscopy was performed without difficulty. The patient tolerated the procedure well. The quality of the bowel preparation was good. Findings: The perianal and digital rectal examinations were normal. Two sessile polyps were found in the ascending colon. The polyps were small in size. These polyps were removed with a cold snare. Resection and retrieval were complete. Multiple small and large-mouthed diverticula were found in the entire colon. There was evidence of diverticular spasm. The colon (entire examined portion) was significantly tortuous. The exam was otherwise normal throughout the examined colon. Biopsies for histology were taken with a cold forceps for evaluation of microscopic colitis. Impression: - Two small polyps in the ascending colon, removed with a cold snare. Resected and retrieved. - Diverticulosis in the entire examined colon. - Biopsies were taken with a cold forceps for evaluation of microscopic colitis. - The exam was otherwise normal to the cecum. Recommendation: - Use fiber, for example Citrucel, Fibercon, Konsyl or Metamucil. - Return to referring physician as previously scheduled. dEward TRIPLETT MD 03/20/2020 8:18:24 AM Number of Addenda: 0 Note Initiated On: 03/20/2020 7:31 AM Estimated Blood Loss: Estimated blood loss: none.
== END 2020-03-20 09:05 | disposition home or self-care (01) ==
LOC: M OPP 07:25
PROVIDERS: ATTEND Internal Medicine Gastroenterology
DX: D12.0 Benign neoplasm of cecum (principal); K57.30 Diverticulosis of large intestine without perforation or abscess without bleeding; R19.7 Diarrhea, unspecified; Z79.899 Other long term (current) drug therapy; Z88.0 Allergy status to penicillin

== ENCOUNTER → 2020-04-14 | Outpatient (CLI) | payer MEDICARE ==
[~2020-04-14] MED LIST changes: -LIDOCAINE 2% 100MG/5ML SDV (FOR ANES.) As Ordered ONE; -propofoL 200 MG/20 ML VIAL As Ordered ONE
[2020-04-14 12:51] LABS: BASO % 0.6 % (0.0-1.0); EOS # 0.1 10^3/uL (0.0-0.5); EOS % 1.8 % (0.0-3.0); HEMOGLOBIN 13.3 g/dl (12.0-15.5); LYMPH # 2.2 10^3/uL (1.5-5.0); LYMPH % 45.3 % (24.0-44.0); MEAN CORPUSCULAR HEMOGLOBIN 31.1 pg (27.0-33.0); MEAN CORPUSCULAR HGB CONC 31.7 g/dl (32.0-36.5); MEAN CORPUSCULAR VOLUME 98.1 fl (80.0-96.0); MONO # 0.3 10^3/uL (0.0-0.8); MONO % 6.8 % (0.0-5.0); NEUTROPHILS # 2.2 10^3/uL (1.5-8.5); NEUTROPHILS % 45.3 % (36.0-66.0); PLATELET COUNT, AUTOMATED 210 10^3/uL (150-450); RED BLOOD COUNT 4.28 10^6/uL (4.00-5.40); WHITE BLOOD COUNT 4.9 10^3/uL (4.0-10.0)
[2020-04-14 13:23] LABS: ALBUMIN 3.2 GM/DL (3.2-5.2); ALT/SGPT 21 U/L (12-78); BILIRUBIN,TOTAL 0.5 MG/DL (0.2-1.0); BLOOD UREA NITROGEN 21 MG/DL (7-18); CALCIUM LEVEL 8.8 MG/DL (8.8-10.2); CARBON DIOXIDE LEVEL 33 MEQ/L (21-32); CHLORIDE LEVEL 105 MEQ/L (98-107); CHOLESTEROL LEVEL 212 MG/DL (<200); CHOLESTEROL RISK RATIO 3.593 (<5); CREATININE FOR GFR 0.69 MG/DL (0.55-1.30); FERRITIN 74 NG/ML (8-252); FREE T4 1.05 NG/DL (0.76-1.46); GLOMERULAR FILTRATION RATE > 60.0 (>32); GLUCOSE, FASTING 86 MG/DL (70-100); HDL CHOLESTEROL 59 MG/DL (>40); IRON (FE) 62 UG/DL (50-170); LDL CHOLESTEROL 120 MG/DL (<100); NON-HDL-C 153 MG/DL; PERCENT SATURATION 21.7 % (13.2-45.0); POTASSIUM SERUM 4.2 MEQ/L (3.5-5.1); SODIUM LEVEL 141 MEQ/L (136-145); THYROID STIMULATING HORMONE 0.237 uIU/ML (0.358-3.740); TOTAL IRON BINDING CAPACITY 286 UG/DL (250-450); TOTAL PROTEIN 7.5 GM/DL (6.4-8.2); TRIGLYCERIDES LEVEL 165 MG/DL (<150)
== END ==
LOC: M PLALAB 08:00
PROVIDERS: ATTEND Family Medicine
DX: E78.2 Mixed hyperlipidemia (principal); C90.00 Multiple myeloma not having achieved remission; E87.6 Hypokalemia; E05.90 Thyrotoxicosis, unspecified without thyrotoxic crisis or storm

== ENCOUNTER → 2020-05-06 | Outpatient (CLI) | payer MEDICARE | LOC: M LABSMTC 09:52 | PROVIDERS: ATTEND Physical Medicine & Rehabilitation | DX: Z01.812 Encounter for preprocedural laboratory examination (principal); Z20.828 Contact with and (suspected) exposure to other viral communicable diseases ==

== ENCOUNTER → 2020-06-26 | Outpatient (CLI) | payer MEDICARE ==
[2020-06-26 16:17] LABS: BLOOD UREA NITROGEN 22 MG/DL (7-18); CREATININE FOR GFR 0.76 MG/DL (0.55-1.30); GLOMERULAR FILTRATION RATE > 60.0 (>32)
== END ==
LOC: M PLALAB 12:18
PROVIDERS: ATTEND Physician Assistant
DX: M47.817 Spondylosis without myelopathy or radiculopathy, lumbosacral region (principal)

== ENCOUNTER → 2020-08-24 | Outpatient (CLI) | payer MEDICARE ==
[2020-08-24 11:48] LABS: BASO % 0.5 % (0.0-1.0); EOS % 0.6 % (0.0-3.0); HEMATOCRIT 41.3 % (36.0-47.0); HEMOGLOBIN 13.1 g/dl (12.0-15.5); LYMPH # 2.3 10^3/uL (1.5-5.0); MEAN CORPUSCULAR HEMOGLOBIN 30.7 pg (27.0-33.0); MEAN CORPUSCULAR HGB CONC 31.7 g/dl (32.0-36.5); MEAN CORPUSCULAR VOLUME 96.7 fl (80.0-96.0); MONO # 0.3 10^3/uL (0.0-0.8); MONO % 4.4 % (0.0-5.0); NEUTROPHILS # 3.9 10^3/uL (1.5-8.5); NEUTROPHILS % 59.3 % (36.0-66.0); PLATELET COUNT, AUTOMATED 206 10^3/uL (150-450); RED BLOOD COUNT 4.27 10^6/uL (4.00-5.40); WHITE BLOOD COUNT 6.6 10^3/uL (4.0-10.0)
--- NOTE | 2020-08-24 11:55 | REP ---
INDICATION: DIARRHEA, STAT LABS 1ST THEN XR COMPARISON: None. TECHNIQUE: Upright view of the chest with supine and upright views of the abdomen and pelvis. FINDINGS: Frontal upright view of the chest demonstrates no acute cardiopulmonary process or free air below the diaphragm to suspect pneumoperitoneum. Minimal scarring at the left lung base noted. Supine and upright views of the abdomen and pelvis demonstrate nonspecific bowel gas pattern without obstruction or perforation. No organomegaly. No abnormal calcifications. Demonstrate degenerative changes and levoconvex scoliosis. IMPRESSION: Nonspecific bowel gas pattern. <Electronically signed by Marcos Swanson > 08/24/20 [id number]
[2020-08-24 12:18] LABS: ALBUMIN 3.7 GM/DL (3.2-5.2); ALT/SGPT 28 U/L (12-78); BILIRUBIN,TOTAL 0.7 MG/DL (0.2-1.0); BLOOD UREA NITROGEN 20 MG/DL (7-18); CALCIUM LEVEL 9.8 MG/DL (8.8-10.2); CARBON DIOXIDE LEVEL 33 MEQ/L (21-32); CHLORIDE LEVEL 102 MEQ/L (98-107); GLOMERULAR FILTRATION RATE > 60.0 (>32); GLUCOSE, FASTING 93 MG/DL (70-100); POTASSIUM SERUM 4.2 MEQ/L (3.5-5.1); SODIUM LEVEL 141 MEQ/L (136-145)
== END ==
LOC: M LAB 10:39
PROVIDERS: ATTEND Physician Assistant Medical
DX: R19.7 Diarrhea, unspecified (principal); R19.8 Other specified symptoms and signs involving the digestive system and abdomen; R10.84 Generalized abdominal pain

== ENCOUNTER → 2020-10-19 | Outpatient (REF) | payer MEDICARE ==
[2020-10-19 12:25] LABS: BASO % 0.9 % (0.0-1.0); EOS # 0.1 10^3/uL (0.0-0.5); EOS % 2.2 % (0.0-3.0); HEMATOCRIT 39.6 % (36.0-47.0); HEMOGLOBIN 12.5 g/dl (12.0-15.5); LYMPH % 45.2 % (24.0-44.0); MEAN CORPUSCULAR HEMOGLOBIN 30.6 pg (27.0-33.0); MEAN CORPUSCULAR HGB CONC 31.6 g/dl (32.0-36.5); MEAN CORPUSCULAR VOLUME 97.1 fl (80.0-96.0); MONO # 0.3 10^3/uL (0.0-0.8); MONO % 6.9 % (2.0-8.0); NEUTROPHILS % 44.6 % (36.0-66.0); PLATELET COUNT, AUTOMATED 204 10^3/uL (150-450); RED BLOOD COUNT 4.08 10^6/uL (4.00-5.40); WHITE BLOOD COUNT 4.5 10^3/uL (4.0-10.0)
[2020-10-19 13:01] LABS: ALBUMIN 3.3 GM/DL (3.2-5.2); ALT/SGPT 22 U/L (12-78); BILIRUBIN,TOTAL 0.4 MG/DL (0.2-1.0); BLOOD UREA NITROGEN 24 MG/DL (7-18); CARBON DIOXIDE LEVEL 34 MEQ/L (21-32); CHLORIDE LEVEL 106 MEQ/L (98-107); CHOLESTEROL LEVEL 189 MG/DL (<200); CHOLESTEROL RISK RATIO 2.907 (<5); CREATININE FOR GFR 0.76 MG/DL (0.55-1.30); FERRITIN 59 NG/ML (8-252); FREE T4 1.02 NG/DL (0.76-1.46); GLOMERULAR FILTRATION RATE > 60.0 (>32); GLUCOSE, FASTING 87 MG/DL (70-100); HDL CHOLESTEROL 65 MG/DL (>40); IRON (FE) 107 UG/DL (50-170); LDL CHOLESTEROL 92 MG/DL (<100); NON-HDL-C 124 MG/DL; PERCENT SATURATION 33.2 % (13.2-45.0); POTASSIUM SERUM 4.1 MEQ/L (3.5-5.1); SODIUM LEVEL 141 MEQ/L (136-145); TOTAL IRON BINDING CAPACITY 322 UG/DL (250-450); TOTAL PROTEIN 7.7 GM/DL (6.4-8.2); TRIGLYCERIDES LEVEL 161 MG/DL (<150)
== END ==
LOC: M SFHCADAM 08:08
PROVIDERS: ATTEND Family Medicine
DX: C90.00 Multiple myeloma not having achieved remission (principal); E87.6 Hypokalemia; E78.2 Mixed hyperlipidemia; E05.90 Thyrotoxicosis, unspecified without thyrotoxic crisis or storm

== ENCOUNTER → 2020-10-21 | Outpatient (REF) | payer MEDICARE, OTHER ==
[2020-10-21 17:58] LABS: FREE T4 1.14 NG/DL (0.76-1.46); THYROID STIMULATING HORMONE 0.351 uIU/ML (0.358-3.740)
== END ==
LOC: M SFHCADAM 15:20
PROVIDERS: ATTEND Family Medicine
DX: R60.9 Edema, unspecified (principal)
CPT/HCPCS: 83880; 84439; 84443; G0463

== ENCOUNTER → 2020-10-28 | Outpatient (CLI) | payer MEDICARE ==
--- NOTE | 2020-10-28 14:10 | REP ---
INDICATION: ELEVATED BNP LEVEL, US 1ST THEN XR. COMPARISON: 11/22/2018. TECHNIQUE: Upright PA and lateral chest. FINDINGS: There is a small Linear scar in the left costophrenic angle. Lung gilliam are otherwise clear. Cardiac size is normal. The miguel and mediastinum are unremarkable. There is scoliosis convex left at the thoracolumbar junction. This is unchanged. IMPRESSION: There are no new or acute cardiopulmonary findings. There is a small linear scar in the left costophrenic angle. Scoliosis as described. <Electronically signed by Jay Fitzgerald > 10/28/20 [id number]
--- NOTE | 2020-10-28 17:08 | REP ---
INDICATION: PERIPHERAL EDEMA, US 1ST THEN XR. Rule out venous thrombosis or reflux. Venous insufficiency. COMPARISON: None. TECHNIQUE: Bilateral lower extremity duplex venous ultrasound with reflux venous insufficiency study FINDINGS: The deep veins are anechoic and fully compressible from the groin to the popliteal fossa in the left and right lower extremity. Color flow imaging is homogeneous. Spectral Doppler interrogation demonstrates intact respiratory variation in flow and normal manual augmentation of flow. There is no evidence of deep vein thrombosis. Reflux findings there is no observable reflux in the deep venous system in the right lower extremity. There is mild reflux in the lesser saphenous vein on the right. The right greater saphenous vein measures 3 mm in greatest AP dimension at the proximal and, 3 mm at mid thigh, and 3 mm at the knee. The lesser saphenous vein measures 4 mm. There is a 3.5 second duration reflux observed in the lesser saphenous vein. In the left lower extremity there is a collateral vein extending off the greater saphenous vein at mid saphenous vein level with to and fro flow in it seen during Valsalva. Reflux ranging from 1.4-2 seconds in duration is observed in the proximal mid and distal femoral vein on the left with bed tilt. The lesser saphenous vein on the left is 2 mm in diameter. Greater saphenous vein diameters are 5 mm proximally, 3 mm at mid thigh, and 2 mm at the knee. IMPRESSION: Negative bilateral lower extremity duplex venous ultrasound. No evidence of deep vein thrombosis. There is mild bilateral reflux; in the lesser saphenous vein on the right, and in the deep system femoral vein on the left. <Electronically signed by Mathieu Schwarz > 10/28/20 0522
== END ==
LOC: M RAD 13:46
PROVIDERS: ATTEND Family Medicine
DX: R60.9 Edema, unspecified (principal); R79.89 Other specified abnormal findings of blood chemistry; M41.9 Scoliosis, unspecified

== ENCOUNTER → 2020-11-23 | Outpatient (REF) | payer MEDICARE ==
[2020-11-23 15:03] LABS: BLOOD UREA NITROGEN 21 MG/DL (7-18); CALCIUM LEVEL 9.7 MG/DL (8.8-10.2); CARBON DIOXIDE LEVEL 35 MEQ/L (21-32); CHLORIDE LEVEL 101 MEQ/L (98-107); CREATININE FOR GFR 0.71 MG/DL (0.55-1.30); FREE T4 1.14 NG/DL (0.76-1.46); GLOMERULAR FILTRATION RATE > 60.0 (>32); GLUCOSE, FASTING 84 MG/DL (70-100); POTASSIUM SERUM 3.9 MEQ/L (3.5-5.1); SODIUM LEVEL 140 MEQ/L (136-145); THYROID STIMULATING HORMONE 0.186 uIU/ML (0.358-3.740)
== END ==
LOC: M PLALAB 10:17
PROVIDERS: ATTEND Family Medicine
DX: R94.6 Abnormal results of thyroid function studies (principal); R60.9 Edema, unspecified

== ENCOUNTER → 2021-01-04 | Outpatient (REF) | payer MEDICARE ==
[2021-01-04 11:16] LABS: FREE T4 1.25 NG/DL (0.76-1.46); THYROID STIMULATING HORMONE 0.05 uIU/ML (0.358-3.740)
== END ==
LOC: M PLALAB 09:48
PROVIDERS: ATTEND Nurse Practitioner Family
DX: R94.6 Abnormal results of thyroid function studies (principal)

== ENCOUNTER → 2021-02-26 | Outpatient (REF) | payer MEDICARE | LOC: M SFHCADAM 13:42 | PROVIDERS: ATTEND Family Medicine | DX: R35.0 Frequency of micturition (principal) ==

== ENCOUNTER → 2021-05-12 | Outpatient (CLI) | payer MEDICARE ==
[2021-05-12 13:56] LABS: FREE T4 1.11 NG/DL (0.76-1.46); THYROID STIMULATING HORMONE 0.471 uIU/ML (0.358-3.740)
== END ==
LOC: M PLALAB 09:23
PROVIDERS: ATTEND Internal Medicine Endocrinology, Diabetes & Metabolism
DX: R94.6 Abnormal results of thyroid function studies (principal)

== ENCOUNTER → 2021-06-03 | Outpatient (CLI) | payer MEDICARE ==
--- NOTE | 2021-06-03 11:03 | REP ---
INDICATION: LOW BACK PAIN, UNSPECIFIED COMPARISON: None. TECHNIQUE: AP, lateral, bilateral oblique, and coned-down views of the lumbar spine. FINDINGS: Frontal and oblique views demonstrate chronic levoconvex scoliosis while lateral view demonstrates chronic grade 1 anterolisthesis at the L4-5 level of approximately 8 mm. Underlying chronic osteopenia and advanced degenerative changes also include endplate sclerosis, disc space narrowing and facet hypertrophy throughout the visualized lumbar spine. No evidence for acute fracture/compression injury.. IMPRESSION: Advanced degenerative changes as noted above. <Electronically signed by Marcos Swanson > 06/03/21 1054
== END ==
LOC: M ADAMS 10:35
PROVIDERS: ATTEND Family Medicine
DX: M41.9 Scoliosis, unspecified (principal); M54.50 Low back pain, unspecified
CPT/HCPCS: 72110; 80048; G0463

== ENCOUNTER → 2021-06-03 | Outpatient (REF) | payer MEDICARE ==
[2021-06-03 13:31] LABS: BLOOD UREA NITROGEN 29 MG/DL (7-18); CALCIUM LEVEL 10.8 MG/DL (8.8-10.2); CARBON DIOXIDE LEVEL 32 MEQ/L (21-32); CHLORIDE LEVEL 104 MEQ/L (98-107); CREATININE FOR GFR 0.71 MG/DL (0.55-1.30); GLOMERULAR FILTRATION RATE > 60.0 (>32); GLUCOSE, FASTING 94 MG/DL (70-100); POTASSIUM SERUM 4.4 MEQ/L (3.5-5.1); SODIUM LEVEL 139 MEQ/L (136-145)
== END ==
LOC: M SFHCADAM 10:32
PROVIDERS: ATTEND Family Medicine
DX: M54.50 Low back pain, unspecified (principal)

== ENCOUNTER → 2021-06-24 | Outpatient (CLI) | payer MEDICARE ==
--- NOTE | 2021-06-24 14:08 | DEXAMM ---
INDICATION: OSTEOPOROSIS SCREENING. COMPARISON: 08/04/2011, 05/27/2005. TECHNIQUE: Bone density was measured using dual-energy x-ray absorptiometry (DEXA). FINDINGS: AP SPINE L1-L4 BMD 1.252 g/cm2 Young Adult T-Score 0.5 Age Matched Z-Score 2.4. RT FEMUR, TOTAL BMD 0.889 g/cm2 Young Adult T-Score -0.9 Age Matched Z-Score 1.3. RT NECK BMD 0.914 g/cm2 Young Adult T-Score -0.9 Age Matched Z-Score 1.4. IMPRESSION: There is normal bone density of the spine. There is normal bone density of the right hip. The density of the spine has increased 1.1% since the initial exam on 05/27/2005. The density of the spine decreased 1.8% since most recent exam on 08/04/2011. The density of the right hip has decreased 18.1% since the initial exam on 05/27/2005. The density of the right hip has decreased 16.4% since the most recent exam on 08/04/2011. FOLLOW-UP: Recommendation for the next bone density exam: 5 years. <Electronically signed by Jay Toledo > 06/24/21 [id number]
== END ==
LOC: M WHC 09:04
PROVIDERS: ATTEND Family Medicine
DX: Z13.820 Encounter for screening for osteoporosis (principal)

== ENCOUNTER → 2021-07-14 | Outpatient (CLI) | payer MEDICARE | LOC: M WHC 09:26 | PROVIDERS: ATTEND Advanced Practice Midwife | DX: Z01.419 Encounter for gynecological examination (general) (routine) without abnormal findings (principal); Z12.31 Encounter for screening mammogram for malignant neoplasm of breast; Z78.0 Asymptomatic menopausal state; Z86.018 Personal history of other benign neoplasm | CPT/HCPCS: 77063; 77067; G0101 ==

== ENCOUNTER → 2021-08-20 | Outpatient (REF) | payer MEDICARE | LOC: M SFHCPLAZ 16:49 | PROVIDERS: ATTEND Physician Assistant Medical | DX: L02.424 Furuncle of left upper limb (principal) | CPT/HCPCS: 10060; 87070; 87076; 87205; G0463 ==

== ENCOUNTER → 2021-10-01 | Outpatient (CLI) | payer MEDICARE ==
[2021-10-01 16:36] LABS: ALBUMIN 3.5 GM/DL (3.2-5.2); BILIRUBIN,DIRECT 0.1 MG/DL (0.0-0.2); BILIRUBIN,TOTAL 0.3 MG/DL (0.2-1.0); TOTAL PROTEIN 7.8 GM/DL (6.4-8.2)
== END ==
LOC: M PLALAB 12:25
PROVIDERS: ATTEND Podiatrist
DX: B35.1 Tinea unguium (principal)

== ENCOUNTER → 2021-11-02 | Outpatient (REF) | payer MEDICARE | LOC: M SFHCADAM 16:24 | PROVIDERS: ATTEND Physician Assistant | DX: R39.15 Urgency of urination (principal) ==

== ENCOUNTER → 2021-11-12 | Outpatient (CLI) | payer MEDICARE ==
[2021-11-12 11:34] LABS: FREE T4 1.19 NG/DL (0.76-1.46); THYROID STIMULATING HORMONE 0.347 uIU/ML (0.358-3.740)
== END ==
LOC: M PLALAB 08:00
PROVIDERS: ATTEND Nurse Practitioner Family
DX: R94.6 Abnormal results of thyroid function studies (principal)

== ENCOUNTER → 2021-12-31 | Outpatient (CLI) | payer MEDICARE ==
[2021-12-31 11:03] LABS: BASO % 0.8 % (0.0-1.0); EOS # 0.1 10^3/uL (0.0-0.5); EOS % 2.3 % (0.0-3.0); HEMOGLOBIN 12.5 g/dl (12.0-15.5); LYMPH # 2.4 10^3/uL (1.5-5.0); LYMPH % 44.4 % (24.0-44.0); MEAN CORPUSCULAR HEMOGLOBIN 30.8 pg (27.0-33.0); MEAN CORPUSCULAR HGB CONC 32.1 g/dl (32.0-36.5); MEAN CORPUSCULAR VOLUME 96.1 fl (80.0-96.0); MONO # 0.4 10^3/uL (0.0-0.8); MONO % 6.6 % (2.0-8.0); NEUTROPHILS # 2.4 10^3/uL (1.5-8.5); NEUTROPHILS % 45.7 % (36.0-66.0); PLATELET COUNT, AUTOMATED 206 10^3/uL (150-450); RED BLOOD COUNT 4.06 10^6/uL (4.00-5.40); WHITE BLOOD COUNT 5.3 10^3/uL (4.0-10.0)
[2021-12-31 11:44] LABS: ALBUMIN 3.2 GM/DL (3.2-5.2); ALT/SGPT 25 U/L (12-78); BILIRUBIN,TOTAL 0.4 MG/DL (0.2-1.0); BLOOD UREA NITROGEN 26 MG/DL (7-18); CALCIUM LEVEL 9.8 MG/DL (8.8-10.2); CARBON DIOXIDE LEVEL 33 MEQ/L (21-32); CHLORIDE LEVEL 107 MEQ/L (98-107); CHOLESTEROL LEVEL 202 MG/DL (<200); CHOLESTEROL RISK RATIO 2.805 (<5); CREATININE FOR GFR 0.73 MG/DL (0.55-1.30); GLOMERULAR FILTRATION RATE > 60.0 (>32); GLUCOSE, FASTING 91 MG/DL (70-100); HDL CHOLESTEROL 72 MG/DL (>40); LDL CHOLESTEROL 106 MG/DL (<100); NON-HDL-C 130 MG/DL; POTASSIUM SERUM 4.8 MEQ/L (3.5-5.1); SODIUM LEVEL 143 MEQ/L (136-145); THYROID STIMULATING HORMONE 0.282 uIU/ML (0.358-3.740); TOTAL PROTEIN 7.4 GM/DL (6.4-8.2); TRIGLYCERIDES LEVEL 118 MG/DL (<150)
== END ==
LOC: M PLALAB 08:01
PROVIDERS: ATTEND Family Medicine
DX: Z00.00 Encounter for general adult medical examination without abnormal findings (principal); Z79.899 Other long term (current) drug therapy

== ENCOUNTER 2022-01-19 11:08 | Emergency (ER) | payer MEDICARE ==
[~2022-01-19] VITALS: Ht 170.2 cm; Wt 58.2 kg
[2022-01-19] MEDS ORDERED: CICL6.6S (11:32)
[2022-01-19] MEDS ORDERED: CELE1CAP7 (11:32)
[2022-01-19] MEDS ORDERED: TIMO0.5S29 (11:32)
[2022-01-19 12:47] LABS: BASO % 0.5 % (0.0-1.0); EOS # 0.1 10^3/uL (0.0-0.5); HEMATOCRIT 39.7 % (36.0-47.0); HEMOGLOBIN 12.9 g/dl (12.0-15.5); LYMPH # 2.3 10^3/uL (1.5-5.0); LYMPH % 38.6 % (24.0-44.0); MEAN CORPUSCULAR HEMOGLOBIN 31.6 pg (27.0-33.0); MEAN CORPUSCULAR HGB CONC 32.5 g/dl (32.0-36.5); MEAN CORPUSCULAR VOLUME 97.3 fl (80.0-96.0); MONO # 0.4 10^3/uL (0.0-0.8); MONO % 6.4 % (2.0-8.0); NEUTROPHILS # 3.2 10^3/uL (1.5-8.5); NEUTROPHILS % 53.3 % (36.0-66.0); PLATELET COUNT, AUTOMATED 201 10^3/uL (150-450); RED BLOOD COUNT 4.08 10^6/uL (4.00-5.40); WHITE BLOOD COUNT 6.1 10^3/uL (4.0-10.0)
[2022-01-19 13:16] LABS: ALBUMIN 3.5 GM/DL (3.2-5.2); ALT/SGPT 32 U/L (12-78); BILIRUBIN,DIRECT 0.1 MG/DL (0.0-0.2); BILIRUBIN,TOTAL 0.5 MG/DL (0.2-1.0); BLOOD UREA NITROGEN 21 MG/DL (7-18); CALCIUM LEVEL 10.1 MG/DL (8.8-10.2); CARBON DIOXIDE LEVEL 33 MEQ/L (21-32); CHLORIDE LEVEL 105 MEQ/L (98-107); GLOMERULAR FILTRATION RATE > 60.0 (>32); GLUCOSE, FASTING 92 MG/DL (70-100); LIPASE 409 U/L (73-393); POTASSIUM SERUM 4.3 MEQ/L (3.5-5.1); SODIUM LEVEL 139 MEQ/L (136-145); TOTAL PROTEIN 8.1 GM/DL (6.4-8.2)
[2022-01-19 14:59] VITALS: BP 115/70
== END 2022-01-19 15:02 | disposition home or self-care (01) ==
LOC: M ED 11:08
DX: R31.9 Hematuria, unspecified (principal); E78.5 Hyperlipidemia, unspecified; J45.909 Unspecified asthma, uncomplicated; Z88.0 Allergy status to penicillin; Z88.2 Allergy status to sulfonamides; Z79.899 Other long term (current) drug therapy

== ENCOUNTER → 2022-02-11 | Outpatient (CLI) | payer MEDICARE ==
[~2022-02-11] MED LIST changes: +CELE1CAP7; +CICL6.6S; +ISOVUE-370 76% 100ML VIAL ONE; +TIMO0.5S29
== END ==
LOC: M PLAIMG 12:53
PROVIDERS: ATTEND Physician Assistant
DX: N28.1 Cyst of kidney, acquired (principal)
CPT/HCPCS: 74177; Q9967

== ENCOUNTER → 2022-03-07 | Outpatient (CLI) | payer MEDICARE ==
[~2022-03-07] MED LIST changes: -ISOVUE-370 76% 100ML VIAL ONE
== END ==
LOC: M RAD 07:31
PROVIDERS: ATTEND Family Medicine
DX: N28.1 Cyst of kidney, acquired (principal); K83.9 Disease of biliary tract, unspecified

== ENCOUNTER → 2022-03-24 | Outpatient (CLI) | payer MEDICARE | LOC: M ADAMS 10:24 | PROVIDERS: ATTEND Family Medicine | DX: M19.042 Primary osteoarthritis, left hand (principal) ==

== ENCOUNTER → 2022-04-29 | Outpatient (CLI) | payer MEDICARE ==
[~2022-04-29] MED LIST changes: +PROHANCE 279.3MG/ML 15ML VIAL As Ordered ONE
== END ==
LOC: M RAD 15:28
PROVIDERS: ATTEND Family Medicine
DX: K86.89 Other specified diseases of pancreas (principal)
CPT/HCPCS: 74183; A9576

== ENCOUNTER → 2022-06-07 | Outpatient (CLI) | payer MEDICARE ==
[~2022-06-07] MED LIST changes: -MSM1000C PO; -PROHANCE 279.3MG/ML 15ML VIAL As Ordered ONE; +RA M1000 PO
[2022-06-07 14:29] LABS: CREATININE FOR GFR 0.69 MG/DL (0.55-1.30); GLOMERULAR FILTRATION RATE > 60.0 (>32)
== END ==
LOC: M PLALAB 09:55
DX: K86.89 Other specified diseases of pancreas (principal)

== ENCOUNTER → 2022-07-24 | Outpatient (CLI) | payer MEDICARE ==
[~2022-07-24] MED LIST changes: +MSM1000C PO; -RA M1000 PO
== END ==
LOC: M LABSMTC 10:37
DX: Z01.812 Encounter for preprocedural laboratory examination (principal); Z20.822 Contact with and (suspected) exposure to COVID-19

== ENCOUNTER → 2022-08-26 | Outpatient (CLI) | payer MEDICARE ==
[~2022-08-26] MED LIST changes: -MSM1000C PO; +RA M1000 PO
== END ==
LOC: M WHC 08:54
PROVIDERS: ATTEND Family Medicine
DX: Z12.31 Encounter for screening mammogram for malignant neoplasm of breast (principal)

== ENCOUNTER → 2022-09-19 | Outpatient (REF) | payer MEDICARE | LOC: M LAB REF 16:07 | PROVIDERS: ATTEND Internal Medicine | DX: M15.0 Primary generalized (osteo)arthritis (principal) ==

== ENCOUNTER → 2022-09-20 | Outpatient (CLI) | payer MEDICARE | LOC: M WUC 09:40 | PROVIDERS: ATTEND Internal Medicine | DX: M17.0 Bilateral primary osteoarthritis of knee (principal) ==

== ENCOUNTER → 2022-09-28 | Outpatient (CLI) | payer MEDICARE | LOC: M WUC 09:27 | PROVIDERS: ATTEND Internal Medicine | DX: S00.83XA Contusion of other part of head, initial encounter (principal); X58.XXXA Exposure to other specified factors, initial encounter; Y92.9 Unspecified place or not applicable ==

== ENCOUNTER → 2022-10-14 | Outpatient (CLI) | payer MEDICARE ==
[~2022-10-14] MED LIST changes: +PROHANCE 279.3MG/ML 15ML VIAL As Ordered ONE
== END ==
LOC: M RAD 10:31
PROVIDERS: ATTEND Internal Medicine Gastroenterology
DX: K86.89 Other specified diseases of pancreas (principal)
CPT/HCPCS: 74183; A9576

== ENCOUNTER 2023-01-05 03:38 | Emergency (ER) | payer MEDICARE ==
[~2023-01-05] VITALS: Ht 170.2 cm; Wt 56.8 kg
[~2023-01-05 03:38] MED LIST changes: -PROHANCE 279.3MG/ML 15ML VIAL As Ordered ONE; +TIMO0.5S20; -TIMO0.5S29
[2023-01-05] MEDS ORDERED: FINA1TAB12 (03:51)
[2023-01-05] MEDS ORDERED: HYDR-3713 (03:51)
[2023-01-05] MEDS ORDERED: NS 500 ML IV ONE (04:10)
[2023-01-05 05:07] LABS: BASO % 0.6 % (0.0-1.0); EOS # 0.2 10^3/uL (0.0-0.5); HEMATOCRIT 39.7 % (36.0-47.0); LYMPH # 1.6 10^3/uL (1.5-5.0); LYMPH % 32.3 % (24.0-44.0); MEAN CORPUSCULAR HEMOGLOBIN 31.4 pg (27.0-33.0); MEAN CORPUSCULAR HGB CONC 32.7 g/dl (32.0-36.5); MEAN CORPUSCULAR VOLUME 95.9 fl (80.0-96.0); MONO # 0.4 10^3/uL (0.0-0.8); MONO % 7.8 % (2.0-8.0); NEUTROPHILS # 2.8 10^3/uL (1.5-8.5); NEUTROPHILS % 56.1 % (36.0-66.0); PLATELET COUNT, AUTOMATED 167 10^3/uL (150-450); RED BLOOD COUNT 4.14 10^6/uL (4.00-5.40)
[2023-01-05 05:30] VITALS: BP 171/71
[2023-01-05 05:38] LABS: ALBUMIN 3.4 G/DL (3.2-5.2); ALKALINE PHOSPHATASE 55 U/L (46-116); ALT/SGPT 26 U/L (7.0-40); AST/SGOT 52 U/L (<34); BILIRUBIN,TOTAL 0.9 MG/DL (0.3-1.2); BLOOD UREA NITROGEN 23 MG/DL (9-23); CALCIUM LEVEL 9.1 MG/DL (8.3-10.6); CARBON DIOXIDE LEVEL 25 MMOL/L (20-31); CHLORIDE LEVEL 108 MMOL/L (98-107); CREATININE FOR GFR 0.66 MG/DL (0.55-1.30); GLOMERULAR FILTRATION RATE > 60.0 (>32); GLUCOSE, FASTING 96 MG/DL (74-106); LIPASE 46 U/L (12-53); POTASSIUM SERUM 4.6 MMOL/L (3.5-5.1); SODIUM LEVEL 141 MMOL/L (136-145); TOTAL PROTEIN 7.3 G/DL (5.7-8.2)
[2023-01-05] MEDS ORDERED: LOPE2TAB12 PO (06:23)
== END 2023-01-05 06:38 | disposition home or self-care (01) ==
LOC: M ED 03:38
DX: K52.9 Noninfective gastroenteritis and colitis, unspecified (principal); E78.5 Hyperlipidemia, unspecified; Z88.0 Allergy status to penicillin; Z88.2 Allergy status to sulfonamides; Z79.02 Long term (current) use of antithrombotics/antiplatelets; Z79.899 Other long term (current) drug therapy

== ENCOUNTER → 2023-03-18 | Outpatient (REF) | payer MEDICARE ==
[~2023-03-18] MED LIST changes: +FINA1TAB12; +HYDR-3713; +LOPE2TAB12 PO
== END ==
LOC: M WUC 18:10
PROVIDERS: ATTEND Nurse Practitioner Family
DX: N39.0 Urinary tract infection, site not specified (principal)

== ENCOUNTER → 2023-07-12 | Outpatient (REF) | payer MEDICARE ==
[~2023-07-12] MED LIST changes: -CELE1CAP7; +CELE1CAP99
== END ==
LOC: M LAB REF 16:39
PROVIDERS: ATTEND Internal Medicine
DX: N39.0 Urinary tract infection, site not specified (principal)

== ENCOUNTER → 2023-07-27 | Outpatient (CLI) | payer MEDICARE | LOC: M WUC 13:41 | PROVIDERS: ATTEND Internal Medicine | DX: M85.88 Other specified disorders of bone density and structure, other site (principal); M47.816 Spondylosis without myelopathy or radiculopathy, lumbar region; M47.812 Spondylosis without myelopathy or radiculopathy, cervical region; M54.9 Dorsalgia, unspecified; M41.9 Scoliosis, unspecified ==

== ENCOUNTER → 2023-08-04 | Outpatient (REF) | payer MEDICARE | LOC: M LAB REF 16:42 | PROVIDERS: ATTEND Internal Medicine | DX: N95.1 Menopausal and female climacteric states (principal) ==

== ENCOUNTER → 2023-09-01 | Outpatient (CLI) | payer MEDICARE | LOC: M WHC 09:26 | PROVIDERS: ATTEND Internal Medicine | DX: Z12.31 Encounter for screening mammogram for malignant neoplasm of breast (principal) ==

== ENCOUNTER → 2024-08-02 | Outpatient (REF) | payer MEDICARE ==
[~2024-08-02] MED LIST changes: -FINA1TAB12; +FINA1TAB4
[2024-08-04 04:03] LABS: PROTEIN, TOTAL SO 7.4 g/dL (6.1-8.1)
[2024-08-05 15:06] LABS: FREE LAMBDA LIGHT CHAINS SERUM 11.1 mg/L (5.7-26.3); KAPPA/LAMBDA RATIO SERUM 2.61 (0.26-1.65)
== END ==
LOC: M LAB REF 16:30
PROVIDERS: ATTEND Internal Medicine
DX: D47.2 Monoclonal gammopathy (principal)

== ENCOUNTER → 2024-09-04 | Outpatient (CLI) | payer MEDICARE | LOC: M WHC 12:53 | PROVIDERS: ATTEND Internal Medicine | DX: Z12.31 Encounter for screening mammogram for malignant neoplasm of breast (principal) ==

== ENCOUNTER → 2024-10-18 | Outpatient (REF) | payer MEDICARE | LOC: M LAB REF 12:13 | PROVIDERS: ATTEND Internal Medicine | DX: N39.0 Urinary tract infection, site not specified (principal) ==

== ENCOUNTER → 2024-10-30 | Outpatient (CLI) | payer MEDICARE | LOC: M PLAIMG 10:30 | PROVIDERS: ATTEND Internal Medicine | DX: M54.16 Radiculopathy, lumbar region (principal); M43.16 Spondylolisthesis, lumbar region; M48.061 Spinal stenosis, lumbar region without neurogenic claudication; M51.369 Other intervertebral disc degeneration, lumbar region without mention of lumbar back pain or lower extremity pain ==

== ENCOUNTER → 2025-02-03 | Outpatient (REF) | payer MEDICARE ==
[~2025-02-03] MED LIST changes: -EQL50TAB2 PO; -TIMO0.5S39 OP; +TIMO5DRO9 OP; +VITA1TAB82 PO
[2025-02-04 15:22] LABS: PROTEIN, TOTAL SO 6.9 g/dL (6.1-8.1)
[2025-02-05 12:13] LABS: FREE KAPPA LIGHT CHAINS SERUM 23.3 mg/L (3.3-19.4); FREE LAMBDA LIGHT CHAINS SERUM 9.6 mg/L (5.7-26.3); KAPPA/LAMBDA RATIO SERUM 2.43 (0.26-1.65)
[2025-02-05 19:03] LABS: ALBUMIN SO 3.5 g/dL (3.8-4.8); ALPHA 1 GLOBULINS SO 0.2 g/dL (0.2-0.3); ALPHA 2 GLOBULINS SO 0.5 g/dL (0.5-0.9); BETA 2 GLOBULIN SO 0.2 g/dL (0.2-0.5); BETA GLOBULIN SO 0.3 g/dL (0.4-0.6); GAMMA GLOBULINS SO 2.2 g/dL (0.8-1.7)
== END ==
LOC: M LAB REF 14:11
PROVIDERS: ATTEND Internal Medicine
DX: D47.2 Monoclonal gammopathy (principal)

== ENCOUNTER → 2025-02-12 | Outpatient (CLI) | payer MEDICARE | LOC: M WHC 14:04 | PROVIDERS: ATTEND Internal Medicine | DX: Z13.820 Encounter for screening for osteoporosis (principal); M85.851 Other specified disorders of bone density and structure, right thigh ==